=== PATIENT | male | born 1990 | race Caucasian/White ===

== ENCOUNTER 2021-01-28 16:57 | Emergency (ER) | payer SELFPAY ==
[2021-01-28] MEDS ORDERED: Lidocaine 1% w/Epinephrine 1:100K 20 ML VIAL ONE (18:02)
[2021-01-28] MEDS ORDERED: Boostrix 0.5 ML (Tdap) VIAL ONE (18:02)
[2021-01-28] MEDS ORDERED: Bacitracin 1 PK ONE (18:25)
== END 2021-01-28 18:35 | disposition home or self-care (01) ==
LOC: MADERS 16:57
DX: S41.111A Laceration without foreign body of right upper arm, initial encounter (principal); F17.210 Nicotine dependence, cigarettes, uncomplicated; W26.9XXA Contact with unspecified sharp object(s), initial encounter
CPT/HCPCS: 12001; 90471; 90715